=== PATIENT | female | born 1965 | race Caucasian/White ===

== ENCOUNTER → 2017-02-03 | Outpatient (CLI) | payer BC ==
[~2017-02-03] MED LIST: ASPI81TA28 PO; BUPR-79 PO; CALC600T9 PO; CALCTAB5 PO; FERR325T49 PO; FERR325T74 PO; FRS/40 PO; LEVO150T9 PO; METO50TA16 PO; POTA-74 PO; SIMV40TA2 PO
== END | disposition home or self-care (01) ==
LOC: C.PAPS 09:47
PROVIDERS: ATTEND Obstetrics & Gynecology
DX: Z01.419 Encounter for gynecological examination (general) (routine) without abnormal findings (principal)

== ENCOUNTER 2017-08-26 12:33 | Emergency (ER) | payer BC, OTHER ==
[~2017-08-26] VITALS: Ht 154.9 cm; Wt 73.2 kg
[~2017-08-26 12:33] MED LIST changes: -CALC600T9 PO; -FERR325T49 PO
[2017-08-26 12:45] VITALS: TEMP 36.9; Ht 154.9 cm; Wt 73.2 kg
[2017-08-26] MEDS ORDERED: CALC600T9 PO (13:05)
[2017-08-26] MEDS ORDERED: FERR325T49 PO (13:05)
--- NOTE | 2017-08-26 13:58 | DIAGNOSTIC IMAGING REPORT ---
L HAND MIN 3 VIEWS ROUTINE CLINICAL HISTORY: L hand pain, attn.: 5 mc; s/p fall trauma. Pain. COMPARISON: None. DISCUSSION: Considerable degenerative change first carpometacarpal joint. Mild degenerative change of all remaining osseous structures. Nondisplaced oblique fracture base proximal phalanx fifth finger. No dislocation. Alignment appears to be anatomic. There is mild soft tissue edema. IMPRESSION: 1. Oblique fracture base proximal phalanx fifth finger. 2. Generalized degenerative change. 3. Soft tissue edema. The above report was generated using voice recognition software. It may contain grammatical, syntax or spelling errors. Electronically signed by: Reuben Gibson M.D. 08/26/2017 1:56 PM Dictated Date/Time: 08/26/2017 1:54 PM
[2017-08-26 14:41] VITALS: BP 121/76; PULSE 72; O2SAT 100
--- NOTE | 2017-08-26 20:33 | EMERGENCY ROOM VISIT NOTE ---
ED Visit Note First contact with patient: 12:53 Chief Complaint: I fell at work. History of Present Illness: Ms. Salcedo is a 51-year-old white female who ambulates into the ED accompanied by male friend complaining of a facial soft tissue injury and left little finger pain. Patient reports approximately one hour before she arrived in the hospital she was walking at work. She reports she slipped and fell striking the left side of her face and left hand on the ground. She reports before the fall she was not experiencing any lightheaded and dizziness, the time of the fall there was no loss of consciousness and since the fall she denies any signs of head injury. Currently she is complaining of a mild achy pain over the left supraorbital area and over the left fifth MCP joint. She rates her discomfort 1/10. Her pains are nonradiating. Both of her pains increased with palpation and her left little finger pain increases with flexion and extension of the MCP joint. She has not identified any alleviating factors related to the pain. She has not taken medication for pain prior to arrival at the hospital. She denies any associated dizziness, lightheadedness, visual changes, hearing changes, difficulty speaking, difficulty swallowing, difficulty ambulating/coordinating body movements, neck pain, back pain, abdominal pain, nausea, vomiting, left hand/little finger weakness/numbness/tingling. Review of Systems: As noted above in history of present illness. 8 body systems were reviewed and found to be negative as noted above. Past Medical History: Unspecified heart disease, hypothyroidism. Current Medications: Lopressor, Wellbutrin, Lasix, Zocor, aspirin, levothyroxine , potassium, calcium and ferrous gluconate. Allergies to Medications: Clindamycin, penicillin, cortisone Social History: Patient is currently employed; she lives with her and feels safe in her home environment; she denies tobacco and alcohol use. Physical Examination: Vital Signs: Date Time Temp Pulse Resp B/P (MAP) Pulse Ox O2 Delivery O2 Flow Rate FiO2 08/26/17 14:41 72 20 121/76 100 08/26/17 12:45 36.9 75 20 127/86 96 Room Air GENERAL: 51-year-old female in mild distress due to pain, nontoxic-appearing, afebrile and hemodynamically stable. NEUROLOGICAL: Awake, alert and oriented to person, place and time. Answering questions appropriately and following commands. Normal gait. Good hand eye coordination. Romberg test negative. Pronator drift test negative. Cranial nerves II through XII grossly intact. Good short-term and long-term recall. SKIN: Warm, dry and pink. Face: Over the lower aspect of the left frontal area and into the left upper eyelid patient has mild swelling and early bruising. There is also a subcentimeter superficial abrasion in this area. HEENT: Atraumatic and normocephalic. All: No bony deformity, bony crepitus, depressions or ecchymosis. No raccoon's eyes or rey signs. No drainage from the ears of the nares; no hemotympanum. Face: Soft tissue contusion as noted above. Mild tenderness in the area of the contusion without bony deformity, bony crepitus or depressions. No tenderness or bruising throughout the rest of the face. PERRLA. EOMI without nystagmus. Sclera white and conjunctiva pink. No malocclusion. Airway patent. No intraoral trauma. Speech is normal and clear. Trachea midline. No jugular venous distention. BACK: No tenderness over the bony cervical and thoracic spine. Full range of motion of the cervical spine. LEFT UPPER EXTREMITY: No gross bony deformity. No tenderness in the forearm and wrist. Mild to moderate tenderness over the fifth MCP joint with early bruising and mild swelling. Full range of motion in flexion and extension of the MCP, PIP and DIP joints. Throughout the finger the skin was warm and pink and capillary refill is brisk. She is able to distinguish light sensations through all dermatomes. ED Course: Patient is assessed as noted above. Patient's medication list was reviewed. The distal discussed the need for a possible CAT scan and patient did not feel one was warranted at this time. Patient was offered pain medications and refused. Left hand x-rays: That shows an oblique fracture at the base of the proximal phalanx of the fifth finger. Left little finger was placed in a long finger splint. Patient was educated about today's findings and instructed on her treatment plan ; she verbalizes understanding and agreement with this plan. Clinical Impression: Left fifth proximal phalange fracture. Facial contusion/ abrasion. Work related injury. Status post fall. Disposition: Patient discharged home in stable condition accompanied by her ; prior to departure she was reassessed and reported her facial pain felt the same but her little finger pain increased and rated her discomfort 4/ 10. Plan: Comfort measures were discussed with the patient's little finger fracture including rest, ice, splint use. Wound care and signs of infection were discussed with the patient's facial abrasion. Patient and were educated on signs of head injury. Patient was encouraged to follow-up with Work[employer] Compensation for her injuries. Patient is encouraged return ED for any signs of head injury, infection or any new/concerning symptoms.
== END 2017-08-26 14:30 | disposition home or self-care (01) ==
LOC: C.EDB 12:34 → C.EDD 14:30
DX: S62.617A Displaced fracture of proximal phalanx of left little finger, initial encounter for closed fracture (principal); S00.83XA Contusion of other part of head, initial encounter; S00.81XA Abrasion of other part of head, initial encounter; W01.0XXA Fall on same level from slipping, tripping and stumbling without subsequent striking against object, initial encounter; Y92.89 Other specified places as the place of occurrence of the external cause; Y99.0 Civilian activity done for income or pay; E03.9 Hypothyroidism, unspecified; I51.9 Heart disease, unspecified; Z79.82 Long term (current) use of aspirin; Z79.899 Other long term (current) drug therapy; Z88.0 Allergy status to penicillin; Z88.8 Allergy status to other drugs, medicaments and biological substances

== ENCOUNTER → 2018-02-12 | Outpatient (CLI) | payer BC ==
[~2018-02-12] MED LIST changes: +CALC600T9 PO; -CALCTAB5 PO; +FERR325T49 PO; -FERR325T74 PO
== END | disposition home or self-care (01) ==
LOC: C.PAPS 15:17
PROVIDERS: ATTEND Obstetrics & Gynecology
DX: Z01.419 Encounter for gynecological examination (general) (routine) without abnormal findings (principal)